=== PATIENT | male | born 1930 | race Caucasian/White ===

== ENCOUNTER 2017-08-04 15:25 | Emergency (ER) | payer MEDICARE, OTHER ==
[~2017-08-04 15:25] MED LIST: AMLO5TAB2 PO
== END 2017-08-05 15:18 | disposition left against medical advice (07) ==
LOC: ER 15:26
DX: Z53.21 Procedure and treatment not carried out due to patient leaving prior to being seen by health care provider (principal)

== ENCOUNTER 2017-08-11 17:08 | Emergency (ER) | payer MEDICARE, OTHER ==
[~2017-08-11] VITALS: Ht 175.3 cm; Wt 69.9 kg
[2017-08-11] MEDS ORDERED: ENZA40CA PO (17:29)
[2017-08-11] MEDS ORDERED: PANT40TA2 PO (17:29)
[2017-08-11] MEDS ORDERED: PROP20TA7 PO (17:29)
[2017-08-11 19:24] LABS: BASOPHILS % (AUTO) 0.6 % (0.0-2.0); EOSINOPHILS # (AUTO) 0.1 K/uL (0.0-0.7); EOSINOPHILS % (AUTO) 1.8 % (0.0-7.0); HEMATOCRIT 38.9 % (36.7-47.1); HEMOGLOBIN 13.1 g/dL (12.5-16.3); LYMPHOCYTES # (AUTO) 0.8 K/uL (20.0-40.0); LYMPHOCYTES % (AUTO) 12.4 % (20.5-51.5); MEAN CORPUSCULAR HEMOGLOBIN 29.7 uug (23.8-33.4); MEAN CORPUSCULAR HGB CONC 34 g/dL (32.5-36.3); MEAN CORPUSCULAR VOLUME 88.2 fL (73.0-96.2); MONOCYTES # (AUTO) 0.7 K/uL (2.0-10.0); MONOCYTES % (AUTO) 11.6 % (0.0-11.0); NEUTROPHILS # (AUTO) 4.5 K/uL (1.8-8.9); NEUTROPHILS % (AUTO) 73.6 % (38.5-71.5); PLATELET COUNT (AUTO) 84 K/uL (152-348); RED BLOOD CELL COUNT(AUTO) 4.41 MIL/uL (4.06-5.63); WHITE BLOOD COUNT (AUTO) 6.1 K/uL (3.6-10.2)
[2017-08-11 19:31] LABS: CARBON DIOXIDE 25 mmol/L (21-32); CHLORIDE 107 mmol/L (98-107); CREATININE 1.5 mg/dL (0.6-1.3); GLUCOSE 118 mg/dL (74-106); POTASSIUM 4.5 mmol/L (3.5-5.1); UREA NITROGEN, BLOOD 24 mg/dL (7-18)
[2017-08-11 19:37] LABS: ALANINE AMINOTRANSFERASE 18 U/L (16-63); ALKALINE PHOSPHATASE 218 U/L (50-136); ASPARTATE AMINOTRANSFERASE 37 U/L (15-37); BILIRUBIN,TOTAL 1.2 mg/dL (0.2-1.0); LIPASE 128 U/L (73-393)
[2017-08-11 19:59] LABS: BAND % (MANUAL) 4 % (0-10); EOSINOPHILS % (MANUAL) 2 % (0-8); LYMPHOCYTES % (MANUAL) 11 % (20-40); MONOCYTES % (MANUAL) 10 % (2-10); NEUTROPHILS % (MANUAL) 73 % (42-75)
[2017-08-11] MEDS ORDERED: IV NORMAL SALINE 1000 ML BAG IV ONE (20:00)
[2017-08-11 20:47] LABS: *BLOOD, URINE 3+ (NEGATIVE); *CLARITY,URINE SLIGHTLY CLOUDY (CLEAR); *COLOR,URINE DARK YELLOW (YELLOW); *KETONES,URINE TRACE (NEGATIVE); *PROTEIN,URINE 2+ (NEGATIVE); *UROBILINOGEN,URINE 0.2 E.U./dl (NORMAL); LEUKOCYTE ESTERASE ,URINE NEGATIVE (NEGATIVE); NITRITE, URINE NEGATIVE (NEGATIVE); PH,URINE 5.5 (5.0-8.0); UGLUCOSE NEGATIVE (NEGATIVE)
[2017-08-11 20:54] LABS: *BILIRUBIN,URIN NEGATIVE (NEGATIVE)
[2017-08-11 20:57] LABS: MUCUS,URINE MANY /LPF (0-FEW); RBC,URINE TNTC /HPF (0-3); SQUAMOUS EPITHELIAL CELL,UR FEW /HPF (NONE SEEN)
--- NOTE | 2017-08-11 23:35 | NUR ---
Patient discharged to home in stable conditon. Written and verbal after care instructions given. Patient verbalizes understanding of instructions.
== END 2017-08-11 23:37 | disposition home or self-care (01) ==
LOC: ER 17:08
DX: C79.82 Secondary malignant neoplasm of genital organs (principal); C61 Malignant neoplasm of prostate; C78.7 Secondary malignant neoplasm of liver and intrahepatic bile duct; D69.6 Thrombocytopenia, unspecified; N28.9 Disorder of kidney and ureter, unspecified; E86.0 Dehydration; I10 Essential (primary) hypertension; I70.0 Atherosclerosis of aorta; K80.20 Calculus of gallbladder without cholecystitis without obstruction
CPT/HCPCS: 36415; 71045; 74176; 80053; 81001; 83605 ×2; 83690; 85025; 85730; 87040 ×2; 93005; 96360; 99285; A4663; J7030

== ENCOUNTER 2018-03-09 22:08 | Emergency (ER) | payer MEDICARE, OTHER ==
[~2018-03-09] VITALS: Ht 177.8 cm; Wt 59.0 kg
[~2018-03-09 22:08] MED LIST changes: +ENZA40CA PO; +PANT40TA2 PO; +PROP20TA7 PO
[2018-03-09] MEDS ORDERED: CEFTRIAXONE 1 G in IV DEXTROSE 5% 50 ML IV ONE (22:30)
[2018-03-09] MEDS ORDERED: TDAP DIPH,PERTUSS,TET VAC/PF 0.5 ML DISP.SYRIN IM ONE ×2 (22:30→23:10)
[2018-03-09] MEDS ORDERED: CEFTRIAXONE 1 G VIAL ONE (23:01)
--- NOTE | 2018-03-09 23:06 | NUR ---
CALL PLACED TO [facility] FOR TRANSFER. TRANSFER WAS DENIED.
--- NOTE | 2018-03-09 23:08 | NUR ---
CALL PLACED TO [facility]. SPOKE WITH MARTHA. FACE SHEET AND SUMMARY REPORT WERE FAXED OVER.
[2018-03-09 23:09] LABS: BASOPHILS % (AUTO) 0.6 % (0.0-2.0); EOSINOPHILS # (AUTO) 0.1 K/uL (0.0-0.7); EOSINOPHILS % (AUTO) 1.5 % (0.0-7.0); HEMATOCRIT 31.4 % (36.7-47.1); HEMOGLOBIN 10.7 g/dL (12.5-16.3); LYMPHOCYTES # (AUTO) 0.5 K/uL (20.0-40.0); LYMPHOCYTES % (AUTO) 9.3 % (20.5-51.5); MEAN CORPUSCULAR HEMOGLOBIN 32.6 uug (23.8-33.4); MEAN CORPUSCULAR HGB CONC 34 g/dL (32.5-36.3); MEAN CORPUSCULAR VOLUME 95.5 fL (73.0-96.2); MONOCYTES # (AUTO) 0.7 K/uL (2.0-10.0); MONOCYTES % (AUTO) 13.9 % (0.0-11.0); NEUTROPHILS # (AUTO) 3.9 K/uL (1.8-8.9); NEUTROPHILS % (AUTO) 74.7 % (38.5-71.5); PLATELET COUNT (AUTO) 82 K/uL (152-348); RED BLOOD CELL COUNT(AUTO) 3.29 MIL/uL (4.06-5.63); WHITE BLOOD COUNT (AUTO) 5.2 K/uL (3.6-10.2)
[2018-03-09 23:23] LABS: ALANINE AMINOTRANSFERASE 84 U/L (16-63); ALKALINE PHOSPHATASE 373 U/L (50-136); ASPARTATE AMINOTRANSFERASE 82 U/L (15-37); BILIRUBIN,DIRECT 0.2 mg/dL (0.0-0.2); BILIRUBIN,TOTAL 0.6 mg/dL (0.2-1.0); CARBON DIOXIDE 19 mmol/L (21-32); CHLORIDE 104 mmol/L (98-107); GLUCOSE 132 mg/dL (74-106); POTASSIUM 4.8 mmol/L (3.5-5.1); TOTAL PROTEIN, SERUM 7.3 g/dL (6.4-8.2); UREA NITROGEN, BLOOD 41 mg/dL (7-18)
--- NOTE | 2018-03-09 23:34 | NUR ---
CALL PLACED TO [facility]. SPOKE WITH DEBBIE LAWRENCE, WHO DENIED TRANSFER DUE TO TYPE OF INJURY. SHE STATED THAT THEY DO NOT HAVE ACCESS TO HAND SURGEON.
[2018-03-10] MEDS ORDERED: LET TOPICAL SOLUTION 8 ML UDC TOP ONE (00:15)
[2018-03-10] MEDS ORDERED: SODIUM BICARBONATE 4.2 % (NEUT) 5 ML VIAL TP ONE (00:15)
[2018-03-10] MEDS ORDERED: LIDOCAINE HCL 2% 20 ML VIAL TP ONE (00:15)
[2018-03-10] MEDS ORDERED: LET TOPICAL SOLUTION 8 ML UDC ONE (00:21)
[2018-03-10] MEDS ORDERED: NEOMY/BACITRA/POLYMYXIN B OINT UD PACKET TP ONE ×2 (01:15→01:17)
--- NOTE | 2018-03-10 01:40 | NUR ---
PT ACCEPTED TO [facility] ED. ACCEPTED BY MD GAMEZ. BLS TRANSPORT ARRANGED ETA [id number]
--- NOTE | 2018-03-10 02:15 | NUR ---
[facility] [id number] BALDOMERO BERNABES
--- NOTE | 2018-03-10 02:25 | NUR ---
REPORT GIVEN TO [facility] ED NURSE, MARC EMT, BALDOMERO PEREIRA
--- NOTE | 2018-03-10 02:33 | NUR ---
PT IN ROUTE TO [facility] TRANSPORTED BY EMT BALDOMERO PEREIRA IN [facility] [address][id number]
== END 2018-03-10 02:33 | disposition short-term general hospital (02) ==
LOC: ER 22:09
DX: S68.114A Complete traumatic metacarpophalangeal amputation of right ring finger, initial encounter (principal); I10 Essential (primary) hypertension; W26.8XXA Contact with other sharp object(s), not elsewhere classified, initial encounter; Y93.89 Activity, other specified; Y92.89 Other specified places as the place of occurrence of the external cause; Y99.8 Other external cause status
CPT/HCPCS: 36415; 73140; 80048; 80076; 85025; 85730; 90471; 90715; 96365; 99285; A4217; A4663; J0696; J3490; J7030; J7060